=== PATIENT | female | born 1990 | race Caucasian/White ===

== ENCOUNTER 2018-05-09 17:09 | Emergency (ER) | payer OTHER ==
--- NOTE | 2018-05-09 17:18 | ER Report ---
History and Physical Time Seen By MD: 17:17 Hx. of Stated Complaint: pt started having muffled hearing in l ear a few days ago, now it hurts and the r ear is starting to give her trouble HPI/ROS CHIEF COMPLAINT: Hearing loss HISTORY OF PRESENT ILLNESS: This is a 27-year-old female who presents to the emergency department for progressive hearing loss. Patient states over the last 3 days she's had progressive hearing loss in the left ear, no drainage now it's uncomfortable. Patient also states now she is having some discomfort in the right ear. She also states that since the hearing loss she's had some unsteadiness. Patient denies fevers, aches or chills. No nausea or vomiting. No visual disturbances. REVIEW OF SYSTEMS: Respiratory: No cough, no dyspnea. Cardiovascular: No chest pain, no palpitations. Gastrointestinal: No vomiting, no abdominal pain. Musculoskeletal: No back pain. EENT: As above. 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 Reviewed Nurses Notes: Yes Constitutional Vital Sign - Last 24 Hours 05/09/18 17:14 Temp 97.8 Pulse 88 Resp 20 B/P (MAP) 115/74 Pulse Ox 96 O2 Delivery Room Air Physical Exam General Appearance: The patient is alert, has no immediate need for airway protection and no current signs of toxicity. Eyes: Pupils equal and round no injection. ENT: Left TM not visualized due to a cerumen impaction. Right TM visualized, bulging however landmarks were noted. No injection or erythema noted. Erythema to the Posterior oropharynx, no edema or exudates. ENT: Reevaluation of the left TM after the large cerumen was evacuated the left TM is visible, bulging with thick within the canal from the irrigation. No erythema or injection no signs of infection. There is still some residual cerumen in the canal. Respiratory: Chest is non tender, lungs are clear to auscultation. Cardiac: regular rate and rhythm. Gastrointestinal: Abdomen is soft and non tender, no masses, bowel sounds normal. Musculoskeletal: Neck: Anterior cervical chain lymphadenopathy, non tender. Extremities have full range of motion and are non tender. Skin: No rashes or lesions. DIFFERENTIAL DIAGNOSIS: After history and physical exam differential diagnosis was considered for otitis media, cerumen impaction, viral syndrome and sinusitis. Medical Decision Making ED Course/Re-evaluation ED Course The patient was admitted to room. A history and physical were obtained. Differential diagnoses were considered. Initially tried hydrogen peroxide and water to soften and irrigate the cerumen impaction was unsuccessful I did try to manually remove the cerumen however was very difficult did try Colace. After several attempts at evacuation of the cerumen, we were finally able to remove 2 large pieces. Patient still has some fullness in the ear however after reexamination it is liquid from the irrigation to the canal. The patient was instructed to establish and follow up with the primary care provider within one week for reevaluation of the dizziness and the cerumen impaction, return to the emergency department for any other concerns or worsening symptoms. Patient did express understanding. I also discussed the possibility of a viral illness with patient, as contributing to her symptoms. The patient had no other questions or concerns and was discharged home. 05/09/2018 6:59:44 pm the cerumen is still impacted after the Colace, we'll try a different irrigation device, the patient is okay with proceeding with this. Decision to Disposition Date: May 09, 2018 Decision to Disposition Time: 19:18 Depart Departure Latest Vital Signs Vital Signs Date Time Temp Pulse Resp B/P (MAP) Pulse Ox O2 Delivery O2 Flow Rate FiO2 05/09/18 17:14 97.8 88 20 115/74 96 Room Air Impression: Primary Impression: Impacted cerumen of left ear Additional Impression: Viral syndrome Condition: Improved Disposition: HOME OR SELF-CARE New Scripts No Active Prescriptions or Reported Meds Patient Instructions: Cerumen Impaction (ED), Viral Syndrome (ED) Additional Instructions: Establish with one of the local providers for follow up within one week. Drink plenty of water. Get plenty of rest. Take Ibuprofen or Tylenol as needed for pain. Return to the ED for any other concerns or worsening symptoms. Problem Qualifiers [facility] [employer] [facility] May 09, 2018 17:18
[2018-05-09] MEDS ORDERED: HYDROGEN PEROXID 3% 473 ML BTL TP ONE (17:30)
[2018-05-09] MEDS ORDERED: DOCUSATE SOD LIQ 100 MG/10 ML UDC PO ONE (18:00)
[2018-05-09 19:24] VITALS: BP 100/76
== END 2018-05-09 19:26 | disposition home or self-care (01) ==
LOC: ER 17:17
DX: H61.22 Impacted cerumen, left ear (principal)
CPT/HCPCS: 99283

== ENCOUNTER 2018-08-07 08:41 | Emergency (ER) | payer OTHER ==
[2018-08-07 08:46] VITALS: BP 116/81
--- NOTE | 2018-08-07 08:46 | ER Report ---
History and Physical Time Seen By MD: 08:46 HPI/ROS CHIEF COMPLAINT: Nausea, 2 episodes of vomiting HISTORY OF PRESENT ILLNESS: Patient is a 27-year-old female here with complaints of nausea times one week, 2 episodes of vomiting today sent here from work for evaluation and clearance. Patient denies abdominal pain, she is on her menses, denies chest pain, shortness breath, fevers or chills. She reports having intermittent nausea. Patient is well-appearing, hemodynamically stable at time of evaluation. REVIEW OF SYSTEMS: Constitutional: No fever, no chills. Eyes: No discharge. ENT: No sore throat. Cardiovascular: No chest pain, no palpitations. Respiratory: No cough, no shortness of breath. Gastrointestinal: No abdominal pain, + nausea and vomiting. Genitourinary: No hematuria. Musculoskeletal: No back pain. Skin: No rashes. Neurological: No headache. Allergies: Coded Allergies: aspirin (Verified Allergy, Unknown, 05/09/18) mom is allergic, she does not wqant to risk it Home Meds Active Scripts Ondansetron (ZOFRAN ODT) 4 Mg Tab.rapdis, 4 MG PO Q6H PRN for NAUSEA/VOMITING, # 20 TAB.COLIN 0 Refills Prov:STACIE GRAY DO 08/07/18 Hx Substance Use Disorder: No Hx Alcohol Use: No Constitutional Vital Sign - Last 24 Hours 08/07/18 08:46 Temp 98.2 Pulse 84 Resp 20 B/P (MAP) 116/81 Pulse Ox 94 O2 Delivery Room Air Physical Exam General Appearance: The patient is alert, has no immediate need for airway protection and no signs of toxicity. NAD Eyes: Pupils equal and round no pallor or injection. ENT, Mouth: Mucous membranes are moist. Respiratory: There are no retractions, lungs are clear to auscultation. Cardiovascular: Regular rate and rhythm. Gastrointestinal: Abdomen is soft and non tender, no masses, bowel sounds normal. Neurological: No focal deficits Skin: Warm and dry, no rashes. Musculoskeletal: Neck is supple non tender. Extremities are nontender, nonswollen and have full range of motion. DIFFERENTIAL DIAGNOSIS: After history and physical exam differential diagnosis was considered for dizziness including but not limited to peripheral and central causes of vertigo, orthostatic causes including dehydration, and blood loss. Medical Decision Making Data Points Result Diagram: 08/07/1891108/07/1812 Laboratory Hematology Test 08/07/18 08:44 08/07/18 09:12 Urine Color Straw Urine Clarity Clear Urine pH 7.0 pH (4.8-9.5) Urine Specific [place] 1.002 Urine Protein Negative mg/dL (NEGATIVE) Urine Glucose (UA) Negative mg/dL (NEGATIVE) Urine Ketones Negative mg/dL (NEGATIVE) Urine Blood Large (NEGATIVE) Urine Nitrite Negative (NEGATIVE) Urine Bilirubin Negative (NEGATIVE) Urine Urobilinogen Negative mg/dL (0.2-1.9) Urine Leukocyte Esterase Negative (NEGATIVE) Urine RBC None /HPF (0-2/HPF) Urine WBC 1 /HPF (0-5/HPF) Urine Squamous Epithelial Cells Many /LPF (</=FEW) Urine Bacteria Few /HPF (NONE-FEW) Urine Mucus None /HPF (NONE-FEW) Urine HCG, Qualitative Negative (NEGATIVE) Red Blood Count 4.80 M/uL (4.17-5.56) Mean Corpuscular Volume 87.5 fL (80.0-96.0) Mean Corpuscular Hemoglobin 29.7 pg (26.0-33.0) Mean Corpuscular Hemoglobin Concent 33.9 g/dL (32.0-36.0) Red Cell Distribution Width 13.5 % (11.5-14.5) Mean Platelet Volume 9.2 fL (7.2-11.1) Neutrophils (%) (Auto) 56.9 % (39.4-72.5) Lymphocytes (%) (Auto) 33.1 % (17.6-49.6) Monocytes (%) (Auto) 7.0 % (4.1-12.4) Eosinophils (%) (Auto) 2.3 % (0.4-6.7) Basophils (%) (Auto) 0.7 % (0.3-1.4) Nucleated RBC Relative Count (auto) 0.0 /100WBC Neutrophils # (Auto) 3.5 K/uL (2.0-7.4) Lymphocytes # (Auto) 2.1 K/uL (1.3-3.6) Monocytes # (Auto) 0.4 K/uL (0.3-1.0) Eosinophils # (Auto) 0.1 K/uL (0.0-0.5) Basophils # (Auto) 0.0 K/uL (0.0-0.1) Nucleated RBC Absolute Count (auto) 0.00 K/uL Sodium Level 139 mmol/L (137-145) Potassium Level 4.1 mmol/L (3.5-5.0) Chloride Level 105 mmol/L (98-107) Carbon Dioxide Level 27 mmol/L (22-31) Blood Urea Nitrogen 8 mg/dl (7-18) Creatinine 0.70 mg/dl (0.52-1.04) Glomerular Filtration Rate Calc > 60.0 Random Glucose 102 mg/dl (75-110) Calcium Level 9.0 mg/dl (8.4-10.2) Total Bilirubin 0.4 mg/dl (0.2-1.3) Aspartate Amino Transf (AST/SGOT) 18 U/L (0-35) Alanine Aminotransferase (ALT/SGPT) 23 U/L (0-56) Alkaline Phosphatase 57 U/L (0-126) Total Protein 7.6 g/dl (6.3-8.2) Albumin 4.1 g/dl (3.5-5.0) Lipase 97 U/L (23-300) Chemistry Test 08/07/18 08:44 08/07/18 09:12 Urine Color Straw Urine Clarity Clear Urine pH 7.0 pH (4.8-9.5) Urine Specific [place] 1.002 Urine Protein Negative mg/dL (NEGATIVE) Urine Glucose (UA) Negative mg/dL (NEGATIVE) Urine Ketones Negative mg/dL (NEGATIVE) Urine Blood Large (NEGATIVE) Urine Nitrite Negative (NEGATIVE) Urine Bilirubin Negative (NEGATIVE) Urine Urobilinogen Negative mg/dL (0.2-1.9) Urine Leukocyte Esterase Negative (NEGATIVE) Urine RBC None /HPF (0-2/HPF) Urine WBC 1 /HPF (0-5/HPF) Urine Squamous Epithelial Cells Many /LPF (</=FEW) Urine Bacteria Few /HPF (NONE-FEW) Urine Mucus None /HPF (NONE-FEW) Urine HCG, Qualitative Negative (NEGATIVE) White Blood Count 6.2 k/uL (4.5-11.0) Red Blood Count 4.80 M/uL (4.17-5.56) Hemoglobin 14.2 g/dL (12.0-16.0) Hematocrit 42.0 % (34.0-47.0) Mean Corpuscular Volume 87.5 fL (80.0-96.0) Mean Corpuscular Hemoglobin 29.7 pg (26.0-33.0) Mean Corpuscular Hemoglobin Concent 33.9 g/dL (32.0-36.0) Red Cell Distribution Width 13.5 % (11.5-14.5) Platelet Count 355 K/uL (150-450) Mean Platelet Volume 9.2 fL (7.2-11.1) Neutrophils (%) (Auto) 56.9 % (39.4-72.5) Lymphocytes (%) (Auto) 33.1 % (17.6-49.6) Monocytes (%) (Auto) 7.0 % (4.1-12.4) Eosinophils (%) (Auto) 2.3 % (0.4-6.7) Basophils (%) (Auto) 0.7 % (0.3-1.4) Nucleated RBC Relative Count (auto) 0.0 /100WBC Neutrophils # (Auto) 3.5 K/uL (2.0-7.4) Lymphocytes # (Auto) 2.1 K/uL (1.3-3.6) Monocytes # (Auto) 0.4 K/uL (0.3-1.0) Eosinophils # (Auto) 0.1 K/uL (0.0-0.5) Basophils # (Auto) 0.0 K/uL (0.0-0.1) Nucleated RBC Absolute Count (auto) 0.00 K/uL Glomerular Filtration Rate Calc > 60.0 Calcium Level 9.0 mg/dl (8.4-10.2) Total Bilirubin 0.4 mg/dl (0.2-1.3) Aspartate Amino Transf (AST/SGOT) 18 U/L (0-35) Alanine Aminotransferase (ALT/SGPT) 23 U/L (0-56) Alkaline Phosphatase 57 U/L (0-126) Total Protein 7.6 g/dl (6.3-8.2) Albumin 4.1 g/dl (3.5-5.0) Lipase 97 U/L (23-300) Urinalysis Test 08/07/18 08:44 Urine Color Straw Urine Clarity Clear Urine pH 7.0 pH (4.8-9.5) Urine Specific [place] 1.002 Urine Protein Negative mg/dL (NEGATIVE) Urine Glucose (UA) Negative mg/dL (NEGATIVE) Urine Ketones Negative mg/dL (NEGATIVE) Urine Blood Large (NEGATIVE) Urine Nitrite Negative (NEGATIVE) Urine Bilirubin Negative (NEGATIVE) Urine Urobilinogen Negative mg/dL (0.2-1.9) Urine Leukocyte Esterase Negative (NEGATIVE) Urine RBC None /HPF (0-2/HPF) Urine WBC 1 /HPF (0-5/HPF) Urine Squamous Epithelial Cells Many /LPF (</=FEW) Urine Bacteria Few /HPF (NONE-FEW) Urine Mucus None /HPF (NONE-FEW) Urine HCG, Qualitative Negative (NEGATIVE) ED Course/Re-evaluation ED Course Patient is a 27-year-old female here with nausea 2 episodes of vomiting. Patient was well-appearing at time of evaluation. She was given oral Zofran ODT and passed an oral challenge. Labs were unremarkable. Patient was given a prescription for Zofran for home treatment. Patient was well-appearing in stable at time of discharge. Decision to Disposition Date: Aug 07, 2018 Decision to Disposition Time: 10:00 Depart Departure Latest Vital Signs Vital Signs Date Time Temp Pulse Resp B/P (MAP) Pulse Ox O2 Delivery O2 Flow Rate FiO2 08/07/18 08:46 98.2 84 20 116/81 94 Room Air Impression: Primary Impression: Nausea & vomiting Condition: Improved Disposition: HOME OR SELF-CARE New Scripts Ondansetron (ZOFRAN ODT) 4 Mg Tab.rapdis 4 MG PO Q6H PRN for NAUSEA/VOMITING, #20 TAB.COLIN 0 Refills Prov: STACIE GRAY DO 08/07/18 Departure Forms: ER Transition Record, Medications Reconciliation, Off Work/School Form, School or Work Release?: Work Number of days to be released: 1 Patient Portal Information Patient Instructions: Acute Nausea and Vomiting (ED) Additional Instructions: You may take 1 Zofran every 4-6 hours as needed for nausea and vomiting. Please drink plenty of water. Please return promptly if you develop worsening symptoms. Please follow-up with your family doctor in the next 3 days. STACIE GRAY DO Aug 07, 2018 08:46
[2018-08-07] MEDS ORDERED: ONDANSETRON 4 MG ODT TH SL ONE (09:05)
[2018-08-07] MEDS ORDERED: ONDANSETRON 4 MG ODT TABDP SL ONE (09:10)
[2018-08-07 09:18] LABS: PLATELET COUNT, AUTOMATED 355 K/uL (150-450)
[2018-08-07] MEDS ORDERED: ONDA4TAB PO (09:44)
== END 2018-08-07 10:08 | disposition home or self-care (01) ==
LOC: ER 09:17
DX: R11.2 Nausea with vomiting, unspecified (principal)
CPT/HCPCS: 36415; 81001; 81025; 83690; 85025; 99283; S0119; 82040; 82247; 82310; 82374; 82435; 82565; 82947; 84075; 84132; 84155; 84295; 84450; 84460; 84520

== ENCOUNTER → 2019-04-04 | Outpatient (REF) | payer OTHER ==
[~2019-04-04] MED LIST: ONDA4TAB PO
[2019-04-04 14:02] LABS: PLATELET COUNT, AUTOMATED 350 K/uL (150-450)
== END ==
PROVIDERS: ATTEND Nurse Practitioner Family
DX: R10.9 Unspecified abdominal pain (principal)
CPT/HCPCS: 82040; 82150; 82247; 82310; 82374; 82435; 82565; 82947; 83690; 84075; 84132; 84155; 84295; 84450; 84460; 84520; 85025